=== PATIENT | male | born 1995 | race Caucasian/White ===

== ENCOUNTER 2021-12-29 10:45 | Inpatient (IN) ==
[2021-12-29] MEDS ORDERED: 0.9 % Sodium Chloride 1,000 ML IVC ONE (12:45)
[2021-12-29] MEDS ORDERED: Iopamidol - 370 500 ML MLS IVP ONE ×3 (12:46→16:36)
[2021-12-29] MEDS ORDERED: *HR* Heparin 5,000 UNIT/ML VIAL IVP ONE (12:53)
[2021-12-29] MEDS ORDERED: Aspirin 81 MG TAB.CHEW PO ONE (12:53)
[2021-12-29] MEDS ORDERED: *HR* Heparin 5,000 UNIT/ML VIAL IVP PRN ×2 (12:53)
[2021-12-29] MEDS ORDERED: *HR* Ticagrelor 90 MG TABLET PO ONE (12:53)
[2021-12-29] MEDS ORDERED: Heparin 25,000UNIT/250ML 1/2NS 25,000 UNIT/250 ML IV.SOLN IVC SCH (13:00)
[2021-12-29 13:06] LABS: Nucleated Red Blood Cells 0.1 /100 WBC (0); Red Cell Distribution Width 12.7 % (11.5-14.5)
[2021-12-29 13:07] LABS: Hematocrit 41.9 % (37.5-50.1); Hemoglobin 14.1 g/dL (12.9-16.9); Mean Corpuscular HGB Conc 33.7 g/dL (31.6-35.5); Mean Corpuscular Hemoglobin 28.9 pg (28.0-33.3); Mean Corpuscular Volume 85.9 fL (83.0-100.0); Mean Platelet Volume 10.8 fL (9.4-12.4); Platelet Count 397 K/mcL (140-400); Red Blood Count 4.88 M/mcL (4.19-5.50)
[2021-12-29] MEDS ORDERED: *HR* FentaNYL (PF) 100 MCG/2 ML VIAL ONE ×3 (13:09→15:16)
[2021-12-29] MEDS ORDERED: *HR* Midazolam HCl 2 MG/2 ML VIAL ONE ×2 (13:10→14:59)
[2021-12-29 13:13] LABS: White Blood Count 39.2 K/mcL (4.3-11.1)
[2021-12-29] MEDS ORDERED: Perflutren Lipid Microsphere 1.3 ML in 0.9 % Sodium Chloride 8.7 ML IVP PRN ×2 (13:15→15:08)
[2021-12-29 13:17] LABS: INR 1.9; Prothrombin Time 20.6 Seconds (9.4-12.1)
[2021-12-29] MEDS ORDERED: Piperacillin/Tazobactam 3.375 GM in 0.9 % Sodium Chloride Mini Bag 100 ML IVPB ONE (13:18)
[2021-12-29] MEDS ORDERED: Tdap (Boostrix) Vaccine 0.5 ML SYRINGE IM ONE (13:18)
[2021-12-29] MEDS ORDERED: Vancomycin 1,250 MG/262.5 ML IV.SOLN IVPB ONE (13:18)
[2021-12-29 13:19] LABS: Activated Partial Thrombo Time 26.7 Seconds (26.0-36.0)
[2021-12-29 13:52] LABS: Albumin 3.2 g/dL (3.5-5.7); Albumin/Globulin Ratio 0.9 (1.1-2.2); Alkaline Phosphatase 129 Units/L (34-104); Aspartate Amino Transferase 693 Units/L (13-39); BUN/Creatinine Ratio 35 (6-26); Bilirubin,Direct 1.6 mg/dL (0.0-0.2); Bilirubin,Indirect 1.5 mg/dL (0.0-1.0); Bilirubin,Total 3.1 mg/dL (0.3-1.0); Blood Urea Nitrogen 42 mg/dL (6-20); C-Reactive Protein 247 mg/L (Less than 10); Calcium 8.9 mg/dL (8.6-10.3); Carbon Dioxide 27 mEq/L (23-29); Chloride 78 mEq/L (98-107); Creatine Kinase 218 Units/L (30-223); Globulin 3.6 g/dL (2.4-3.5); Glucose 135 mg/dL (70-105); Magnesium 2.4 mg/dL (1.6-2.6); Osmolality,Calculated 261 (280-300); Potassium 4.9 mEq/L (3.5-5.1); Sodium 119 mEq/L (136-145); Total Protein 6.8 g/dL (6.4-8.9); Troponin I 0.17 ng/mL (< 0.04); eGFR For African Americans > 60 (> 60); eGFR For Non-African Americans > 60 (> 60)
[2021-12-29 13:56] LABS: Lymphocytes # 2.4 K/mcL (0.6-4.6); Neutrophils # 34.9 K/mcL (1.6-8.9)
[2021-12-29 13:58] LABS: Large Platelets Present (Not Present); Platelet Estimate Normal (Normal); Polychromasia 1+ (Not Present)
[2021-12-29 14:14] LABS: Alanine Aminotransferase 905 Units/L (7-52)
[2021-12-29] MEDS ORDERED: Ondansetron 4 MG/2 ML VIAL IVP ONE (14:30)
[2021-12-29] MEDS ORDERED: *HR* Heparin 10,000 UNIT/10 ML VIAL ONE (14:41)
[2021-12-29] MEDS ORDERED: *HR* Atropine Sulfate 1 MG/10 ML SYRINGE ONE (14:41)
[2021-12-29] MEDS ORDERED: Iopamidol - 370 200 ML INFUS..BTL ONE (14:42)
[2021-12-29] MEDS ORDERED: Heparin 1,000 UNITS/500 mL 500 ML ONE (14:42)
[2021-12-29] MEDS ORDERED: 0.9 % Sodium Chloride 2,000 ML ONE (14:42)
[2021-12-29] MEDS ORDERED: Nitroglycerin 1,000 MCG/5 ML VIAL IV ONE (14:42)
[2021-12-29] MEDS ORDERED: 0.9 % Sodium Chloride 1,000 ML ONE (14:42)
[2021-12-29 16:58] LABS: Appearance of Pericardial Fl Cloudy (Clear)
[2021-12-29] MEDS ORDERED: 0.9 % Sodium Chloride 1,000 ML IV ONE (17:02)
[2021-12-29] MEDS ORDERED: Naloxone 0.4 MG/ML INJ IVP PRN (17:29)
[2021-12-29] MEDS ORDERED: *HR* LORazepam 2 MG/ML VIAL IVP ONE (17:34)
[2021-12-29 17:49] LABS: Amylase,Pericardial Fluid < 10 Units/L (No Ref Range); Glucose,Pericardial Fluid < 10 mg/dL (No Ref Range)
[2021-12-29 18:09] LABS: Bacteria,Urine Few per hpf (None-Few); Bilirubin,Urine Negative (Negative); Blood,Urine Trace (Negative); Clarity,Urine Clear (Clear); Color,Urine Light-Yellow (Yellow); Glucose,Urine (UA) Normal (Normal); Ketones,Urine Negative (Negative); Leukocyte Esterase,Urine Negative (Negative); Mucus,Urine Few per lpf (None-Few); Nitrite,Urine Negative (Negative); PH,Urine 6.5 pH Units (5.0-8.0); Protein,Urine Negative (Neg-Trace); RBC,Urine 0-3 per hpf (0-3); Specific Gravity,Urine 1.021 (1.010-1.025); WBC,Urine 0-3 per hpf (0-3)
[2021-12-29 18:19] LABS: Creatinine,Urine 30 mg/dL; Sodium, Urine 12.4 mEq/L
[2021-12-29 18:27] LABS: Amphetamine Screen,Urine Positive ng/mL (Cutoff=1000); Barbiturate Screen,Urine Negative ng/mL (Cutoff=200); Benzodiazepines Screen,Urine Negative ng/mL (Cutoff=200); Cannabinoid Screen,Urine Negative ng/mL (Cutoff = 50); Cocaine Screen,Urine Negative ng/mL (Cutoff= 300); Opiate Screen,Urine Negative ng/mL (Cutoff=300); Phencyclidine Screen,Urine Negative ng/mL (Cutoff=25)
[2021-12-29 19:09] LABS: BUN/Creatinine Ratio 35 (6-26); Blood Urea Nitrogen 36 mg/dL (6-20); Calcium 7.9 mg/dL (8.6-10.3); Carbon Dioxide 30 mEq/L (23-29); Chloride 88 mEq/L (98-107); Glucose 88 mg/dL (70-105); Osmolality,Calculated 268 (280-300); Potassium 4.3 mEq/L (3.5-5.1); Sodium 125 mEq/L (136-145); eGFR For African Americans > 60 (> 60); eGFR For Non-African Americans > 60 (> 60)
[2021-12-29] MEDS: *HR* HYDROcodone/Acet 5/325 mg TABLET PO PRN (20:51)
[2021-12-29] MEDS: Piperacillin/Tazobactam 3.375 GM in 0.9 % Sodium Chloride Mini Bag 100 ML IVPB SCH (20:52)
[2021-12-29 21:22] LABS: BUN/Creatinine Ratio 38 (6-26); Blood Urea Nitrogen 33 mg/dL (6-20); Calcium 7.9 mg/dL (8.6-10.3); Carbon Dioxide 26 mEq/L (23-29); Chloride 92 mEq/L (98-107); Glucose 88 mg/dL (70-105); Osmolality,Calculated 271 (280-300); Potassium 4.2 mEq/L (3.5-5.1); Sodium 127 mEq/L (136-145); eGFR For African Americans > 60 (> 60); eGFR For Non-African Americans > 60 (> 60)
[2021-12-29 21:38] LABS: Troponin I 0.36 ng/mL (< 0.04)
[2021-12-30] MEDS: *HR* Heparin 5,000 UNIT/ML VIAL SQ SCH ×3 (00:07→18:37)
[2021-12-30] MEDS: Vancomycin 1,250 MG/262.5 ML IV.SOLN IVPB SCH ×3 (00:37→15:46)
[2021-12-30 02:00] LABS: Hematocrit 39.4 % (37.5-50.1); Hemoglobin 13.3 g/dL (12.9-16.9); Immature Granulocytes % 4.6 % (0-4); Lymphocytes % 4.8 %; Mean Corpuscular HGB Conc 33.8 g/dL (31.6-35.5); Mean Corpuscular Hemoglobin 29.3 pg (28.0-33.3); Mean Corpuscular Volume 86.8 fL (83.0-100.0); Monocytes # 1.9 K/mcL (0.0-1.3); Monocytes % 4.5 %; Nucleated Red Blood Cells 0.1 /100 WBC (0); Platelet Count 369 K/mcL (140-400); Red Blood Count 4.54 M/mcL (4.19-5.50); Segmented Neutrophils % 86.1 %
[2021-12-30 02:01] LABS: White Blood Count 41.8 K/mcL (4.3-11.1)
[2021-12-30 02:19] LABS: BUN/Creatinine Ratio 33 (6-26); Blood Urea Nitrogen 29 mg/dL (6-20); Calcium 7.8 mg/dL (8.6-10.3); Carbon Dioxide 28 mEq/L (23-29); Chloride 92 mEq/L (98-107); Glucose 89 mg/dL (70-105); Osmolality,Calculated 267 (280-300); Potassium 3.9 mEq/L (3.5-5.1); Sodium 126 mEq/L (136-145); eGFR For African Americans > 60 (> 60); eGFR For Non-African Americans > 60 (> 60)
[2021-12-30 02:51] LABS: Albumin 2.7 g/dL (3.5-5.7); Albumin/Globulin Ratio 0.9 (1.1-2.2); Alkaline Phosphatase 115 Units/L (34-104); Aspartate Amino Transferase 352 Units/L (13-39); BUN/Creatinine Ratio 34 (6-26); Bilirubin,Total 2.5 mg/dL (0.3-1.0); Blood Urea Nitrogen 28 mg/dL (6-20); Calcium 7.8 mg/dL (8.6-10.3); Carbon Dioxide 27 mEq/L (23-29); Chloride 92 mEq/L (98-107); Globulin 2.9 g/dL (2.4-3.5); Glucose 89 mg/dL (70-105); Osmolality,Calculated 267 (280-300); Phosphorous 2.3 mg/dL (2.7-4.5); Potassium 3.8 mEq/L (3.5-5.1); Sodium 126 mEq/L (136-145); Total Protein 5.6 g/dL (6.4-8.9); Troponin I 0.34 ng/mL (< 0.04); eGFR For African Americans > 60 (> 60); eGFR For Non-African Americans > 60 (> 60)
[2021-12-30 03:15] LABS: Alanine Aminotransferase 595 Units/L (7-52)
[2021-12-30] MEDS: *HR* HYDROcodone/Acet 5/325 mg TABLET PO PRN (04:07)
[2021-12-30] MEDS: Piperacillin/Tazobactam 3.375 GM in 0.9 % Sodium Chloride Mini Bag 100 ML IVPB SCH ×3 (04:09→20:05)
[2021-12-30 09:30] LABS: mecA/C & MREJ (MRSA) Gene DETECTED (Not Detect)
[2021-12-30 09:31] LABS: A.calcoaceticus-baumannii cplx Not Detected (Not Detect); Bacteroides fragilis by PCR Not Detected (Not Detect); Candida albicans by PCR Not Detected (Not Detect); Candida auris by PCR Not Detected (Not Detect); Candida glabrata by PCR Not Detected (Not Detect); Candida krusei by PCR Not Detected (Not Detect); Candida parapsilosis by PCR Not Detected (Not Detect); Candida tropicalis by PCR Not Detected (Not Detect); Crypto. neoformans/gattii PCR Not Detected (Not Detect); Enterobacter cloacae Cmplx PCR Not Detected (Not Detect); Enterobacterales by PCR Not Detected (Not Detect); Enterococcus faecalis by PCR Not Detected (Not Detect); Enterococcus faecium by PCR Not Detected (Not Detect); Escherichia coli by PCR Not Detected (Not Detect); Klebs. pneumoniae group by PCR Not Detected (Not Detect); Klebsiella aerogenes by PCR Not Detected (Not Detect); Klebsiella oxytoca by PCR Not Detected (Not Detect); Proteus by PCR Not Detected (Not Detect); Pseudomonas aeruginosa by PCR Not Detected (Not Detect); Salmonella species by PCR Not Detected (Not Detect); Serratia marcescens by PCR Not Detected (Not Detect); Staph epidermidis by PCR Not Detected (Not Detect); Staph lugdunensis by PCR Not Detected (Not Detect); Staphylococcus aureus by PCR DETECTED (Not Detect); Stenotrophomonas maltophilia Not Detected (Not Detect); Streptococcus agalactiae(B)PCR Not Detected (Not Detect); Streptococcus by PCR Not Detected (Not Detect); Streptococcus pneumoniae PCR Not Detected (Not Detect); Streptococcus pyogenes (A) PCR Not Detected (Not Detect)
[2021-12-30] MEDS: Ibuprofen 600 MG TABLET PO SCH ×3 (13:45→20:05)
[2021-12-30] MEDS: Colchicine 0.6 MG TABLET PO SCH ×2 (13:45→20:05)
[2021-12-30] MEDS: Ringers Solution, Lactated 1,000 ML IVC SCH (13:46)
[2021-12-31] MEDS: Vancomycin 1,250 MG/262.5 ML IV.SOLN IVPB SCH ×4 (01:15→23:13)
[2021-12-31] MEDS: Ringers Solution, Lactated 1,000 ML IVC SCH ×2 (01:15→19:35)
[2021-12-31] MEDS: *HR* Heparin 5,000 UNIT/ML VIAL SQ SCH ×2 (05:37→18:23)
[2021-12-31] MEDS: Piperacillin/Tazobactam 3.375 GM in 0.9 % Sodium Chloride Mini Bag 100 ML IVPB SCH ×2 (05:37→18:17)
[2021-12-31 07:13] LABS: Mean Corpuscular HGB Conc 32.9 g/dL (31.6-35.5); Red Cell Distribution Width 13.2 % (11.5-14.5)
[2021-12-31 07:14] LABS: Hematocrit 38.6 % (37.5-50.1); Hemoglobin 12.7 g/dL (12.9-16.9); Mean Corpuscular Hemoglobin 29.3 pg (28.0-33.3); Mean Corpuscular Volume 88.9 fL (83.0-100.0); Mean Platelet Volume 9.6 fL (9.4-12.4); Platelet Count 329 K/mcL (140-400); Red Blood Count 4.34 M/mcL (4.19-5.50); White Blood Count 27.3 K/mcL (4.3-11.1)
[2021-12-31 07:32] LABS: Alanine Aminotransferase 377 Units/L (7-52); Albumin 2.4 g/dL (3.5-5.7); Albumin/Globulin Ratio 0.9 (1.1-2.2); Alkaline Phosphatase 126 Units/L (34-104); Aspartate Amino Transferase 230 Units/L (13-39); BUN/Creatinine Ratio 25 (6-26); Bilirubin,Total 1.2 mg/dL (0.3-1.0); Blood Urea Nitrogen 19 mg/dL (6-20); Calcium 6.6 mg/dL (8.6-10.3); Carbon Dioxide 28 mEq/L (23-29); Chloride 99 mEq/L (98-107); Globulin 2.8 g/dL (2.4-3.5); Glucose 107 mg/dL (70-105); Osmolality,Calculated 279 (280-300); Potassium 3.7 mEq/L (3.5-5.1); Sodium 133 mEq/L (136-145); Total Protein 5.2 g/dL (6.4-8.9); eGFR For African Americans > 60 (> 60); eGFR For Non-African Americans > 60 (> 60)
[2021-12-31 07:55] LABS: Lymphocytes # 1.1 K/mcL (0.6-4.6); Monocytes # 1.1 K/mcL (0.0-1.3); Neutrophils # 24.6 K/mcL (1.6-8.9)
[2021-12-31 07:56] LABS: Platelet Estimate Normal (Normal); Toxic Granulation Present (Not Present)
[2021-12-31 08:03] LABS: Hepatitis B Surface Antibody 136.76 mIU/mL
[2021-12-31 08:15] LABS: Hepatitis B Surface Antigen Nonreactive (Nonreactive)
[2021-12-31] MEDS: *HR* HYDROcodone/Acet 5/325 mg TABLET PO PRN (08:22)
[2021-12-31] MEDS: Colchicine 0.6 MG TABLET PO SCH ×2 (08:23→21:17)
[2021-12-31] MEDS: Ibuprofen 600 MG TABLET PO SCH ×3 (08:23→21:16)
[2021-12-31 08:43] LABS: HIV-1&2 Antibody & p24 Ag Nonreactive (Nonreactive)
[2021-12-31] MEDS ORDERED: Lidocaine Viscous Oral Soln 15 ML SOLUTION MM PRN (13:25)
[2021-12-31] MEDS ORDERED: 0.9 % Sodium Chloride 500 ML IVC ONE (13:26)
[2021-12-31] MEDS: *HR* Midazolam HCl 5 MG/5 ML VIAL IVP PRN ×2 (13:55→14:00)
[2021-12-31] MEDS: *HR* FentaNYL (PF) 100 MCG/2 ML VIAL IVP PRN ×2 (13:55→14:00)
[2022-01-01] MEDS: *HR* HYDROcodone/Acet 5/325 mg TABLET PO PRN ×2 (03:38→10:59)
[2022-01-01] MEDS: Ondansetron 4 MG/2 ML VIAL IVP PRN (03:38)
[2022-01-01] MEDS: *HR* Heparin 5,000 UNIT/ML VIAL SQ SCH ×2 (06:14→17:03)
[2022-01-01] MEDS: Ringers Solution, Lactated 1,000 ML IVC SCH ×4 (06:14→17:58)
[2022-01-01 06:44] LABS: Hematocrit 41.3 % (37.5-50.1); Hemoglobin 13.1 g/dL (12.9-16.9); Mean Corpuscular HGB Conc 31.7 g/dL (31.6-35.5); Mean Corpuscular Hemoglobin 28.9 pg (28.0-33.3); Mean Platelet Volume 9.7 fL (9.4-12.4); Platelet Count 328 K/mcL (140-400); Red Blood Count 4.54 M/mcL (4.19-5.50); Red Cell Distribution Width 14.2 % (11.5-14.5)
[2022-01-01] MEDS ORDERED: Iopamidol - 370 500 ML MLS IVP ONE ×3 (06:47→09:06)
[2022-01-01 07:05] LABS: Alanine Aminotransferase 312 Units/L (7-52); Albumin 2.3 g/dL (3.5-5.7); Albumin/Globulin Ratio 0.7 (1.1-2.2); Alkaline Phosphatase 137 Units/L (34-104); Aspartate Amino Transferase 176 Units/L (13-39); BUN/Creatinine Ratio 22 (6-26); Bilirubin,Total 0.9 mg/dL (0.3-1.0); Blood Urea Nitrogen 15 mg/dL (6-20); Calcium 7.4 mg/dL (8.6-10.3); Carbon Dioxide 28 mEq/L (23-29); Chloride 99 mEq/L (98-107); Globulin 3.1 g/dL (2.4-3.5); Glucose 120 mg/dL (70-105); Osmolality,Calculated 274 (280-300); Potassium 3.5 mEq/L (3.5-5.1); Sodium 131 mEq/L (136-145); Total Protein 5.4 g/dL (6.4-8.9); eGFR For African Americans > 60 (> 60); eGFR For Non-African Americans > 60 (> 60)
[2022-01-01 07:06] LABS: Magnesium 1.9 mg/dL (1.6-2.6); Phosphorous 2.5 mg/dL (2.7-4.5)
[2022-01-01 07:29] LABS: Lymphocytes # 1.5 K/mcL (0.6-4.6); Neutrophils # 22.5 K/mcL (1.6-8.9); Platelet Estimate Normal (Normal); Toxic Granulation Present (Not Present)
[2022-01-01] MEDS: Colchicine 0.6 MG TABLET PO SCH ×2 (08:05→20:23)
[2022-01-01] MEDS: Ibuprofen 600 MG TABLET PO SCH ×3 (08:06→20:23)
[2022-01-01] MEDS: Vancomycin 1,250 MG/262.5 ML IV.SOLN IVPB SCH ×3 (08:10→23:16)
[2022-01-01] MEDS ORDERED: Morphine Sulfate 2 MG/ML SYRINGE IVP ONE (09:07)
[2022-01-01 09:21] LABS: Troponin I 0.07 ng/mL (< 0.04)
[2022-01-01] MEDS ORDERED: Ringers Solution, Lactated 1,000 ML IVC ONE (11:17)
[2022-01-01] MEDS ORDERED: Perflutren Lipid Microsphere 1.3 ML in 0.9 % Sodium Chloride 8.7 ML IVP PRN (11:18)
[2022-01-01] MEDS ORDERED: Ringers Solution, Lactated 1,000 ML IV SCH (11:30)
[2022-01-01] MEDS ORDERED: 0.9 % Sodium Chloride 1,000 ML ONE (12:10)
[2022-01-01] MEDS ORDERED: *HR* Midazolam HCl 2 MG/2 ML VIAL ONE (12:15)
[2022-01-01] MEDS ORDERED: *HR* FentaNYL (PF) 100 MCG/2 ML VIAL ONE (12:15)
[2022-01-02] MEDS: Acetaminophen 325 MG TABLET PO PRN ×2 (00:03→18:06)
[2022-01-02 01:28] LABS: Hematocrit 35.6 % (37.5-50.1); Mean Corpuscular HGB Conc 32.3 g/dL (31.6-35.5); Mean Corpuscular Hemoglobin 28.9 pg (28.0-33.3); Mean Corpuscular Volume 89.4 fL (83.0-100.0); Mean Platelet Volume 9.7 fL (9.4-12.4); Platelet Count 326 K/mcL (140-400); Red Blood Count 3.98 M/mcL (4.19-5.50); Red Cell Distribution Width 14.2 % (11.5-14.5); White Blood Count 20.8 K/mcL (4.3-11.1)
[2022-01-02 01:37] LABS: Hemoglobin 11.5 g/dL (12.9-16.9)
[2022-01-02 01:47] LABS: Alanine Aminotransferase 218 Units/L (7-52); Albumin 2.1 g/dL (3.5-5.7); Albumin/Globulin Ratio 0.7 (1.1-2.2); Alkaline Phosphatase 109 Units/L (34-104); Aspartate Amino Transferase 104 Units/L (13-39); BUN/Creatinine Ratio 20 (6-26); Bilirubin,Total 0.8 mg/dL (0.3-1.0); Blood Urea Nitrogen 12 mg/dL (6-20); Calcium 7.4 mg/dL (8.6-10.3); Carbon Dioxide 26 mEq/L (23-29); Chloride 104 mEq/L (98-107); Globulin 3.1 g/dL (2.4-3.5); Glucose 106 mg/dL (70-105); Osmolality,Calculated 278 (280-300); Sodium 134 mEq/L (136-145); Total Protein 5.2 g/dL (6.4-8.9); eGFR For African Americans > 60 (> 60); eGFR For Non-African Americans > 60 (> 60)
[2022-01-02 02:06] LABS: Lymphocytes # 1.7 K/mcL (0.6-4.6); Monocytes # 0.8 K/mcL (0.0-1.3); Neutrophils # 18.3 K/mcL (1.6-8.9)
[2022-01-02 02:07] LABS: Platelet Estimate Normal (Normal)
[2022-01-02] MEDS: Ringers Solution, Lactated 1,000 ML IVC SCH ×3 (05:36→19:59)
[2022-01-02] MEDS: *HR* Heparin 5,000 UNIT/ML VIAL SQ SCH ×2 (05:37→16:58)
[2022-01-02] MEDS: *HR* HYDROcodone/Acet 5/325 mg TABLET PO PRN (07:38)
[2022-01-02] MEDS ORDERED: Perflutren Lipid Microsphere 1.3 ML in 0.9 % Sodium Chloride 8.7 ML IVP PRN (09:16)
[2022-01-02] MEDS: Ibuprofen 600 MG TABLET PO SCH ×3 (11:05→19:59)
[2022-01-02] MEDS: Colchicine 0.6 MG TABLET PO SCH ×2 (11:05→19:59)
[2022-01-02] MEDS: Vancomycin 1,500 MG/265 ML IV.SOLN IVPB SCH ×2 (11:06→16:58)
[2022-01-03] MEDS: Vancomycin 1,500 MG/265 ML IV.SOLN IVPB SCH ×2 (01:12→20:12)
[2022-01-03] MEDS: Ondansetron 4 MG/2 ML VIAL IVP PRN ×2 (02:43→22:24)
[2022-01-03] MEDS: Ringers Solution, Lactated 1,000 ML IVC SCH ×2 (04:12→19:47)
[2022-01-03] MEDS: *HR* Heparin 5,000 UNIT/ML VIAL SQ SCH ×2 (06:48→17:37)
[2022-01-03] MEDS: *HR* HYDROcodone/Acet 5/325 mg TABLET PO PRN ×2 (06:53→17:37)
[2022-01-03] MEDS: Ibuprofen 600 MG TABLET PO SCH ×3 (09:22→20:11)
[2022-01-03] MEDS: Colchicine 0.6 MG TABLET PO SCH ×2 (09:22→20:12)
[2022-01-03 09:53] LABS: Basophils # 0.1 K/mcL (0.0-0.2); Basophils % 0.6 %; Eosinophils % 0.2 %; Hematocrit 38.2 % (37.5-50.1); Hemoglobin 12.3 g/dL (12.9-16.9); Immature Granulocytes % 2.7 % (0-4); Lymphocytes # 1.7 K/mcL (0.6-4.6); Lymphocytes % 8.7 %; Mean Corpuscular HGB Conc 32.2 g/dL (31.6-35.5); Mean Corpuscular Hemoglobin 29.1 pg (28.0-33.3); Mean Corpuscular Volume 90.3 fL (83.0-100.0); Mean Platelet Volume 9.3 fL (9.4-12.4); Monocytes # 0.9 K/mcL (0.0-1.3); Monocytes % 4.6 %; Platelet Count 308 K/mcL (140-400); Red Blood Count 4.23 M/mcL (4.19-5.50); Red Cell Distribution Width 13.8 % (11.5-14.5); Segmented Neutrophils % 83.2 %; White Blood Count 19.2 K/mcL (4.3-11.1)
[2022-01-03] MEDS: Acetaminophen 325 MG TABLET PO PRN (10:09)
[2022-01-03 10:13] LABS: Alanine Aminotransferase 165 Units/L (7-52); Albumin 2.3 g/dL (3.5-5.7); Albumin/Globulin Ratio 0.7 (1.1-2.2); Alkaline Phosphatase 105 Units/L (34-104); Aspartate Amino Transferase 64 Units/L (13-39); BUN/Creatinine Ratio 15 (6-26); Bilirubin,Total 0.9 mg/dL (0.3-1.0); Blood Urea Nitrogen 9 mg/dL (6-20); Calcium 7.6 mg/dL (8.6-10.3); Carbon Dioxide 27 mEq/L (23-29); Chloride 100 mEq/L (98-107); Globulin 3.3 g/dL (2.4-3.5); Glucose 100 mg/dL (70-105); Osmolality,Calculated 271 (280-300); Potassium 4.4 mEq/L (3.5-5.1); Sodium 131 mEq/L (136-145); Total Protein 5.6 g/dL (6.4-8.9); eGFR For African Americans > 60 (> 60); eGFR For Non-African Americans > 60 (> 60)
[2022-01-03 16:11] LABS: Estimated Average Glucose 100 mg/dl; Hemoglobin A1C 5.1 %
[2022-01-03 16:13] LABS: Basophils # 0.1 K/mcL (0.0-0.2); Basophils % 0.4 %; Eosinophils # 0.1 K/mcL (0.0-0.6); Eosinophils % 0.7 %; Hematocrit 36.3 % (37.5-50.1); Hemoglobin 11.7 g/dL (12.9-16.9); Immature Granulocytes % 3.1 % (0-4); Lymphocytes # 1.8 K/mcL (0.6-4.6); Lymphocytes % 9.8 %; Mean Corpuscular HGB Conc 32.2 g/dL (31.6-35.5); Mean Corpuscular Hemoglobin 29.3 pg (28.0-33.3); Mean Corpuscular Volume 90.8 fL (83.0-100.0); Mean Platelet Volume 9.5 fL (9.4-12.4); Monocytes % 5.5 %; Neutrophils # 14.8 K/mcL (1.6-8.9); Platelet Count 299 K/mcL (140-400); Red Cell Distribution Width 13.8 % (11.5-14.5); Segmented Neutrophils % 80.5 %; White Blood Count 18.4 K/mcL (4.3-11.1)
[2022-01-03 16:21] LABS: INR 1.2; Prothrombin Time 12.9 Seconds (9.4-12.1)
[2022-01-03 16:23] LABS: Activated Partial Thrombo Time 23.5 Seconds (26.0-36.0)
[2022-01-03 16:48] LABS: BUN/Creatinine Ratio 16 (6-26); Blood Urea Nitrogen 10 mg/dL (6-20); Calcium 7.8 mg/dL (8.6-10.3); Carbon Dioxide 25 mEq/L (23-29); Chloride 102 mEq/L (98-107); Chol/HDL Ratio 6.3 (0-4.9); Cholesterol 75 mg/dL (< 200); Glucose 94 mg/dL (70-105); HDL Cholesterol 12 mg/dL (40-59); LDL Cholesterol,Calculated 41 mg/dL (< 100); Osmolality,Calculated 277 (280-300); Sodium 134 mEq/L (136-145); Triglycerides 111 mg/dL (< 150); eGFR For African Americans > 60 (> 60); eGFR For Non-African Americans > 60 (> 60)
[2022-01-03] MEDS: Nystatin SUSP 5 ML UD.LIQ BC SCH ×2 (20:10→22:28)
[2022-01-03] MEDS: Chlorhexidine Rinse 15 ML MOUTHWASH MM SCH (20:11)
[2022-01-04] MEDS: *HR* HYDROcodone/Acet 5/325 mg TABLET PO PRN ×2 (02:20→08:35)
[2022-01-04] MEDS: Ringers Solution, Lactated 1,000 ML IVC SCH ×3 (02:22→21:01)
[2022-01-04] MEDS: Vancomycin 1,500 MG/265 ML IV.SOLN IVPB SCH ×3 (02:24→17:38)
[2022-01-04 04:03] LABS: Basophils # 0.1 K/mcL (0.0-0.2); Basophils % 0.7 %; Eosinophils # 0.1 K/mcL (0.0-0.6); Eosinophils % 0.4 %; Hematocrit 37.3 % (37.5-50.1); Immature Granulocytes % 2.9 % (0-4); Lymphocytes % 12.2 %; Mean Corpuscular HGB Conc 32.2 g/dL (31.6-35.5); Mean Corpuscular Hemoglobin 29.1 pg (28.0-33.3); Mean Corpuscular Volume 90.5 fL (83.0-100.0); Mean Platelet Volume 9.5 fL (9.4-12.4); Monocytes # 1.1 K/mcL (0.0-1.3); Monocytes % 6.7 %; Neutrophils # 12.7 K/mcL (1.6-8.9); Platelet Count 313 K/mcL (140-400); Red Blood Count 4.12 M/mcL (4.19-5.50); Red Cell Distribution Width 13.9 % (11.5-14.5); Segmented Neutrophils % 77.1 %; White Blood Count 16.5 K/mcL (4.3-11.1)
[2022-01-04 04:15] LABS: Magnesium 1.6 mg/dL (1.6-2.6); Phosphorous 4.8 mg/dL (2.7-4.5)
[2022-01-04 04:17] LABS: Alanine Aminotransferase 124 Units/L (7-52); Albumin 2.2 g/dL (3.5-5.7); Albumin/Globulin Ratio 0.6 (1.1-2.2); Alkaline Phosphatase 105 Units/L (34-104); Aspartate Amino Transferase 47 Units/L (13-39); BUN/Creatinine Ratio 18 (6-26); Bilirubin,Total 0.6 mg/dL (0.3-1.0); Blood Urea Nitrogen 10 mg/dL (6-20); Calcium 8.1 mg/dL (8.6-10.3); Carbon Dioxide 27 mEq/L (23-29); Chloride 101 mEq/L (98-107); Globulin 3.6 g/dL (2.4-3.5); Glucose 78 mg/dL (70-105); Osmolality,Calculated 274 (280-300); Potassium 4.3 mEq/L (3.5-5.1); Sodium 133 mEq/L (136-145); Total Protein 5.8 g/dL (6.4-8.9); eGFR For African Americans > 60 (> 60); eGFR For Non-African Americans > 60 (> 60)
[2022-01-04] MEDS: *HR* Heparin 5,000 UNIT/ML VIAL SQ SCH ×2 (05:04→19:51)
[2022-01-04] MEDS ORDERED: Aspirin 81 MG TAB.CHEW PO ONE (06:00)
[2022-01-04] MEDS: Nystatin SUSP 5 ML UD.LIQ BC SCH ×4 (07:12→21:01)
[2022-01-04] MEDS: Colchicine 0.6 MG TABLET PO SCH ×2 (07:12→21:01)
[2022-01-04] MEDS: Chlorhexidine Rinse 15 ML MOUTHWASH MM SCH (07:12)
[2022-01-04] MEDS: Ibuprofen 600 MG TABLET PO SCH ×3 (07:12→21:01)
[2022-01-04 09:17] LABS: HCV Quant Interpretation DETECTED (Not Detected); HCV Quant Log 4.71 log IU/mL
[2022-01-04] MEDS ORDERED: CeFAZolin Syr 2,000MG/20 ML 2,000 MG/20 ML SYRINGE IVPB ONE (10:50)
[2022-01-04] MEDS ORDERED: *HR* Rocuronium Bromide 50 MG/5 ML VIAL ONE (16:20)
[2022-01-04] MEDS ORDERED: Lidocaine 2% Syringe 100 MG/5 ML ONE (16:21)
[2022-01-04] MEDS ORDERED: *HR* FentaNYL (PF) 250 MCG/5 ML VIAL ONE (16:21)
[2022-01-04] MEDS ORDERED: *HR* Etomidate 20 MG/10 ML AMPUL IVP ONE (16:21)
[2022-01-04] MEDS ORDERED: Bupivacaine/EPI 1:200k 0.25% 50 ML VIAL ONE (17:09)
[2022-01-04] MEDS ORDERED: Albuterol 2.5 MG/3 ML NEBULIZER IH PRN (17:23)
[2022-01-04] MEDS ORDERED: *HR* OxyCODONE Immed Rel 5 MG TABLET PO PRN (17:23)
[2022-01-04] MEDS ORDERED: Ondansetron 4 MG/2 ML VIAL IVP PRN (17:23)
[2022-01-04] MEDS ORDERED: Ondansetron 4 MG/2 ML VIAL ONE (18:13)
[2022-01-04] MEDS ORDERED: Ketorolac 30 MG/ML VIAL ONE (18:26)
[2022-01-04] MEDS ORDERED: Sugammadex Sodium 200 MG/2 ML VIAL IV ONE (18:43)
[2022-01-04] MEDS ORDERED: Ketamine HCL *QUVA* 50mg (1mL) SYRINGE ONE (18:50)
[2022-01-04] MEDS: Ondansetron 4 MG/2 ML VIAL IVP PRN (19:01)
[2022-01-04] MEDS: *HR* HYDROmorphone PF 0.5 MG/0.5 ML SYRINGE IVP PRN ×2 (19:09→19:20)
[2022-01-05] MEDS: Vancomycin 1,500 MG/265 ML IV.SOLN IVPB SCH ×3 (01:59→19:52)
[2022-01-05] MEDS: *HR* Heparin 5,000 UNIT/ML VIAL SQ SCH ×2 (05:31→18:43)
[2022-01-05] MEDS: *HR* HYDROcodone/Acet 5/325 mg TABLET PO PRN ×2 (05:34→19:53)
[2022-01-05 06:02] LABS: Basophils % 0.2 %; Hematocrit 38.4 % (37.5-50.1); Hemoglobin 12.2 g/dL (12.9-16.9); Immature Granulocytes % 1.5 % (0-4); Lymphocytes # 0.8 K/mcL (0.6-4.6); Mean Corpuscular HGB Conc 31.8 g/dL (31.6-35.5); Mean Corpuscular Hemoglobin 28.6 pg (28.0-33.3); Mean Corpuscular Volume 90.1 fL (83.0-100.0); Mean Platelet Volume 9.4 fL (9.4-12.4); Monocytes # 0.3 K/mcL (0.0-1.3); Monocytes % 2.3 %; Neutrophils # 11.6 K/mcL (1.6-8.9); Platelet Count 359 K/mcL (140-400); Red Blood Count 4.26 M/mcL (4.19-5.50); Red Cell Distribution Width 13.6 % (11.5-14.5); White Blood Count 12.9 K/mcL (4.3-11.1)
[2022-01-05 06:19] LABS: Magnesium 1.8 mg/dL (1.6-2.6); Phosphorous 4.5 mg/dL (2.7-4.5)
[2022-01-05 06:21] LABS: Alanine Aminotransferase 97 Units/L (7-52); Albumin 2.4 g/dL (3.5-5.7); Albumin/Globulin Ratio 0.6 (1.1-2.2); Alkaline Phosphatase 109 Units/L (34-104); Aspartate Amino Transferase 35 Units/L (13-39); BUN/Creatinine Ratio 24 (6-26); Bilirubin,Total 0.5 mg/dL (0.3-1.0); Blood Urea Nitrogen 14 mg/dL (6-20); Calcium 8.1 mg/dL (8.6-10.3); Carbon Dioxide 28 mEq/L (23-29); Chloride 100 mEq/L (98-107); Globulin 3.8 g/dL (2.4-3.5); Glucose 149 mg/dL (70-105); Osmolality,Calculated 277 (280-300); Potassium 4.7 mEq/L (3.5-5.1); Sodium 132 mEq/L (136-145); Total Protein 6.2 g/dL (6.4-8.9); eGFR For African Americans > 60 (> 60); eGFR For Non-African Americans > 60 (> 60)
[2022-01-05] MEDS: Ringers Solution, Lactated 1,000 ML IVC SCH ×2 (07:30→14:35)
[2022-01-05] MEDS: Ibuprofen 600 MG TABLET PO SCH ×3 (09:31→19:53)
[2022-01-05] MEDS: Nystatin SUSP 5 ML UD.LIQ BC SCH ×4 (09:31→19:53)
[2022-01-05] MEDS: Colchicine 0.6 MG TABLET PO SCH ×2 (09:32→19:53)
[2022-01-05] MEDS: Ondansetron 4 MG/2 ML VIAL IVP PRN (13:11)
[2022-01-05] MEDS ORDERED: Promethazine 6.25 MG in Water for inj. (sterile) 20 ML IVPB PRN (15:19)
[2022-01-05] MEDS ORDERED: *HR* Midazolam HCl 2 MG/2 ML VIAL ONE (15:37)
[2022-01-05] MEDS ORDERED: Lidocaine -MPF 2% 5 ML VIAL ONE (15:37)
[2022-01-05] MEDS ORDERED: Ondansetron 4 MG/2 ML VIAL ONE (15:37)
[2022-01-05] MEDS ORDERED: *HR* FentaNYL (PF) 100 MCG/2 ML VIAL ONE (15:37)
[2022-01-05] MEDS ORDERED: *HR* Propofol 200 MG/20 ML VIAL IVP ONE (15:38)
[2022-01-05] MEDS ORDERED: Lidocaine/EPI 1:200k 1% PF 10 ML VIAL ONE (15:38)
[2022-01-05] MEDS ORDERED: Lidocaine/EPI 1:100k 1% 50 ML VIAL ONE (15:38)
[2022-01-05] MEDS ORDERED: *HR* HYDROMORPHONE 2 MG/ML VIAL ONE (16:06)
[2022-01-06 02:08] LABS: Basophils % 0.2 %; Hematocrit 37.5 % (37.5-50.1); Hemoglobin 12.1 g/dL (12.9-16.9); Immature Granulocytes % 1.3 % (0-4); Lymphocytes # 0.9 K/mcL (0.6-4.6); Mean Corpuscular HGB Conc 32.3 g/dL (31.6-35.5); Mean Corpuscular Hemoglobin 29.3 pg (28.0-33.3); Mean Corpuscular Volume 90.8 fL (83.0-100.0); Mean Platelet Volume 9.6 fL (9.4-12.4); Monocytes # 0.8 K/mcL (0.0-1.3); Monocytes % 4.2 %; Neutrophils # 16.2 K/mcL (1.6-8.9); Platelet Count 410 K/mcL (140-400); Red Blood Count 4.13 M/mcL (4.19-5.50); Red Cell Distribution Width 13.4 % (11.5-14.5); Segmented Neutrophils % 89.3 %; White Blood Count 18.1 K/mcL (4.3-11.1)
[2022-01-06 02:18] LABS: Alanine Aminotransferase 92 Units/L (7-52); Albumin 2.3 g/dL (3.5-5.7); Albumin/Globulin Ratio 0.6 (1.1-2.2); Alkaline Phosphatase 104 Units/L (34-104); Aspartate Amino Transferase 61 Units/L (13-39); BUN/Creatinine Ratio 34 (6-26); Bilirubin,Total 0.4 mg/dL (0.3-1.0); Blood Urea Nitrogen 21 mg/dL (6-20); Calcium 8.1 mg/dL (8.6-10.3); Carbon Dioxide 26 mEq/L (23-29); Chloride 102 mEq/L (98-107); Globulin 3.7 g/dL (2.4-3.5); Glucose 160 mg/dL (70-105); Osmolality,Calculated 282 (280-300); Potassium 4.5 mEq/L (3.5-5.1); Sodium 133 mEq/L (136-145); eGFR For African Americans > 60 (> 60); eGFR For Non-African Americans > 60 (> 60)
[2022-01-06] MEDS: Vancomycin 1,500 MG/265 ML IV.SOLN IVPB SCH (03:28)
[2022-01-06] MEDS: *HR* HYDROcodone/Acet 5/325 mg TABLET PO PRN ×3 (03:34→23:51)
[2022-01-06] MEDS: *HR* Heparin 5,000 UNIT/ML VIAL SQ SCH ×2 (05:47→16:45)
[2022-01-06] MEDS ORDERED: 0.9 % Sodium Chloride 1,000 ML IVC SCH (07:30)
[2022-01-06] MEDS: Ringers Solution, Lactated 1,000 ML IVC SCH ×2 (08:38→12:56)
[2022-01-06] MEDS: Nystatin SUSP 5 ML UD.LIQ BC SCH ×4 (08:39→19:48)
[2022-01-06] MEDS: Colchicine 0.6 MG TABLET PO SCH ×2 (08:39→19:46)
[2022-01-06] MEDS: Ibuprofen 600 MG TABLET PO SCH ×3 (08:40→19:46)
[2022-01-06] MEDS: Vancomycin 1,750 MG/517.5 ML IV.SOLN IVPB SCH ×2 (11:41→23:47)
[2022-01-06] MEDS ORDERED: Lidocaine -MPF 1% 5 ML AMPUL INFILT ONE (13:58)
[2022-01-07] MEDS: *HR* Heparin 5,000 UNIT/ML VIAL SQ SCH ×2 (06:23→16:59)
[2022-01-07] MEDS: *HR* HYDROcodone/Acet 5/325 mg TABLET PO PRN (06:24)
[2022-01-07 07:15] LABS: Hematocrit 40.3 % (37.5-50.1); Hemoglobin 12.6 g/dL (12.9-16.9); Mean Corpuscular HGB Conc 31.3 g/dL (31.6-35.5); Mean Corpuscular Hemoglobin 29.2 pg (28.0-33.3); Mean Corpuscular Volume 93.3 fL (83.0-100.0); Platelet Count 458 K/mcL (140-400); Red Blood Count 4.32 M/mcL (4.19-5.50); Red Cell Distribution Width 13.4 % (11.5-14.5); White Blood Count 15.8 K/mcL (4.3-11.1)
[2022-01-07 07:45] LABS: BUN/Creatinine Ratio 30 (6-26); Blood Urea Nitrogen 17 mg/dL (6-20); Calcium 7.9 mg/dL (8.6-10.3); Carbon Dioxide 25 mEq/L (23-29); Chloride 106 mEq/L (98-107); Glucose 82 mg/dL (70-105); Osmolality,Calculated 283 (280-300); Potassium 4.1 mEq/L (3.5-5.1); Sodium 136 mEq/L (136-145); eGFR For African Americans > 60 (> 60); eGFR For Non-African Americans > 60 (> 60)
[2022-01-07] MEDS: Nystatin SUSP 5 ML UD.LIQ BC SCH ×4 (10:00→20:56)
[2022-01-07] MEDS: Ibuprofen 600 MG TABLET PO SCH ×3 (10:01→20:55)
[2022-01-07] MEDS: Colchicine 0.6 MG TABLET PO SCH ×2 (10:01→20:56)
[2022-01-07] MEDS: Ondansetron 4 MG/2 ML VIAL IVP PRN (10:34)
[2022-01-07] MEDS: Vancomycin 1,750 MG/517.5 ML IV.SOLN IVPB SCH ×2 (10:59→18:28)
[2022-01-07 13:07] LABS: HCV Genotype by Sequencing 1A OR 1B
[2022-01-08] MEDS: Vancomycin 1,750 MG/517.5 ML IV.SOLN IVPB SCH ×3 (02:57→20:09)
[2022-01-08] MEDS: Acetaminophen 325 MG TABLET PO PRN (03:03)
[2022-01-08 05:44] LABS: BUN/Creatinine Ratio 28 (6-26); Blood Urea Nitrogen 14 mg/dL (6-20); Calcium 8.2 mg/dL (8.6-10.3); Carbon Dioxide 27 mEq/L (23-29); Chloride 101 mEq/L (98-107); Glucose 88 mg/dL (70-105); Osmolality,Calculated 278 (280-300); Sodium 134 mEq/L (136-145); eGFR For African Americans > 60 (> 60); eGFR For Non-African Americans > 60 (> 60)
[2022-01-08 05:45] LABS: Hematocrit 35.2 % (37.5-50.1); Mean Corpuscular HGB Conc 30.7 g/dL (31.6-35.5); Mean Corpuscular Hemoglobin 28.6 pg (28.0-33.3); Mean Corpuscular Volume 93.4 fL (83.0-100.0); Mean Platelet Volume 9.2 fL (9.4-12.4); Platelet Count 353 K/mcL (140-400); Red Blood Count 3.77 M/mcL (4.19-5.50); Red Cell Distribution Width 13.3 % (11.5-14.5); White Blood Count 13.6 K/mcL (4.3-11.1)
[2022-01-08] MEDS: *HR* Heparin 5,000 UNIT/ML VIAL SQ SCH ×2 (06:08→17:08)
[2022-01-08 06:14] LABS: Hemoglobin 10.8 g/dL (12.9-16.9)
[2022-01-08] MEDS: Nystatin SUSP 5 ML UD.LIQ BC SCH ×4 (08:10→20:09)
[2022-01-08] MEDS: Colchicine 0.6 MG TABLET PO SCH ×2 (08:11→20:09)
[2022-01-08] MEDS: Ibuprofen 600 MG TABLET PO SCH ×3 (08:11→20:09)
[2022-01-08] MEDS: *HR* HYDROcodone/Acet 5/325 mg TABLET PO PRN (17:07)
[2022-01-08] MEDS: Ringers Solution, Lactated 1,000 ML IVC SCH (19:34)
[2022-01-09] MEDS: Vancomycin 1,750 MG/517.5 ML IV.SOLN IVPB SCH ×3 (02:21→19:43)
[2022-01-09] MEDS: *HR* HYDROcodone/Acet 5/325 mg TABLET PO PRN ×3 (02:25→20:17)
[2022-01-09 03:10] LABS: BUN/Creatinine Ratio 27 (6-26); Blood Urea Nitrogen 16 mg/dL (6-20); eGFR For African Americans > 60 (> 60); eGFR For Non-African Americans > 60 (> 60)
[2022-01-09] MEDS: *HR* Heparin 5,000 UNIT/ML VIAL SQ SCH ×2 (04:45→17:38)
[2022-01-09] MEDS: Nystatin SUSP 5 ML UD.LIQ BC SCH ×4 (08:49→20:11)
[2022-01-09] MEDS: Colchicine 0.6 MG TABLET PO SCH ×2 (08:49→19:45)
[2022-01-09] MEDS: Ibuprofen 600 MG TABLET PO SCH ×3 (08:49→20:18)
[2022-01-09] MEDS: Acetaminophen 325 MG TABLET PO PRN (15:26)
[2022-01-10 03:08] LABS: Basophils # 0.1 K/mcL (0.0-0.2); Basophils % 0.6 %; Eosinophils # 0.1 K/mcL (0.0-0.6); Eosinophils % 0.8 %; Hematocrit 32.2 % (37.5-50.1); Hemoglobin 10.3 g/dL (12.9-16.9); Immature Granulocytes % 0.7 % (0-4); Lymphocytes # 1.7 K/mcL (0.6-4.6); Lymphocytes % 14.7 %; Mean Corpuscular Hemoglobin 29.7 pg (28.0-33.3); Mean Corpuscular Volume 92.8 fL (83.0-100.0); Mean Platelet Volume 9.2 fL (9.4-12.4); Monocytes # 0.8 K/mcL (0.0-1.3); Monocytes % 6.4 %; Platelet Count 352 K/mcL (140-400); Red Blood Count 3.47 M/mcL (4.19-5.50); Red Cell Distribution Width 13.2 % (11.5-14.5); Segmented Neutrophils % 76.8 %; White Blood Count 11.7 K/mcL (4.3-11.1)
[2022-01-10 03:30] LABS: BUN/Creatinine Ratio 37 (6-26); Blood Urea Nitrogen 22 mg/dL (6-20); Calcium 8.2 mg/dL (8.6-10.3); Carbon Dioxide 27 mEq/L (23-29); Chloride 103 mEq/L (98-107); Glucose 100 mg/dL (70-105); Osmolality,Calculated 285 (280-300); Potassium 4.3 mEq/L (3.5-5.1); Sodium 136 mEq/L (136-145); eGFR For African Americans > 60 (> 60); eGFR For Non-African Americans > 60 (> 60)
[2022-01-10] MEDS: *HR* Heparin 5,000 UNIT/ML VIAL SQ SCH ×2 (05:26→17:52)
[2022-01-10] MEDS: Vancomycin 1,750 MG/517.5 ML IV.SOLN IVPB SCH ×3 (05:26→21:33)
[2022-01-10] MEDS: Acetaminophen 325 MG TABLET PO PRN ×2 (05:40→14:58)
[2022-01-10] MEDS: Nystatin SUSP 5 ML UD.LIQ BC SCH ×4 (09:25→20:01)
[2022-01-10] MEDS: Ibuprofen 600 MG TABLET PO SCH ×3 (09:25→20:01)
[2022-01-10] MEDS: Colchicine 0.6 MG TABLET PO SCH ×2 (09:25→20:02)
[2022-01-11 01:53] LABS: Hematocrit 32.6 % (37.5-50.1); Hemoglobin 10.3 g/dL (12.9-16.9); Mean Corpuscular HGB Conc 31.6 g/dL (31.6-35.5); Mean Corpuscular Hemoglobin 28.8 pg (28.0-33.3); Mean Corpuscular Volume 91.1 fL (83.0-100.0); Platelet Count 387 K/mcL (140-400); Red Blood Count 3.58 M/mcL (4.19-5.50); Red Cell Distribution Width 13.1 % (11.5-14.5); White Blood Count 11.5 K/mcL (4.3-11.1)
[2022-01-11 02:36] LABS: BUN/Creatinine Ratio 34 (6-26); Blood Urea Nitrogen 21 mg/dL (6-20); Calcium 8.7 mg/dL (8.6-10.3); Carbon Dioxide 26 mEq/L (23-29); Chloride 104 mEq/L (98-107); Glucose 96 mg/dL (70-105); Magnesium 1.8 mg/dL (1.6-2.6); Osmolality,Calculated 287 (280-300); Potassium 4.2 mEq/L (3.5-5.1); Sodium 137 mEq/L (136-145); eGFR For African Americans > 60 (> 60); eGFR For Non-African Americans > 60 (> 60)
[2022-01-11] MEDS: *HR* HYDROcodone/Acet 5/325 mg TABLET PO PRN ×3 (03:32→15:01)
[2022-01-11] MEDS: Vancomycin 1,750 MG/517.5 ML IV.SOLN IVPB SCH ×3 (05:43→21:13)
[2022-01-11] MEDS: *HR* Heparin 5,000 UNIT/ML VIAL SQ SCH ×2 (05:44→17:49)
[2022-01-11] MEDS: Nystatin SUSP 5 ML UD.LIQ BC SCH ×4 (09:04→20:45)
[2022-01-11] MEDS: Ibuprofen 600 MG TABLET PO SCH ×3 (09:04→20:53)
[2022-01-11] MEDS: Colchicine 0.6 MG TABLET PO SCH ×2 (09:04→20:53)
[2022-01-12] MEDS: Vancomycin 1,750 MG/517.5 ML IV.SOLN IVPB SCH ×4 (05:05→23:41)
[2022-01-12] MEDS: *HR* Heparin 5,000 UNIT/ML VIAL SQ SCH ×2 (05:05→17:34)
[2022-01-12] MEDS: *HR* HYDROcodone/Acet 5/325 mg TABLET PO PRN (05:09)
[2022-01-12] MEDS: Colchicine 0.6 MG TABLET PO SCH ×2 (08:58→20:17)
[2022-01-12] MEDS: Ibuprofen 600 MG TABLET PO SCH ×3 (08:58→20:15)
[2022-01-12] MEDS: Nystatin SUSP 5 ML UD.LIQ BC SCH ×4 (08:59→20:15)
[2022-01-12 09:35] LABS: eGFR For African Americans > 60 (> 60); eGFR For Non-African Americans > 60 (> 60)
[2022-01-12] MEDS ORDERED: 0.9 % Sodium Chloride 250 ML ONE (22:10)
[2022-01-13] MEDS: *HR* HYDROcodone/Acet 5/325 mg TABLET PO PRN ×2 (05:44→21:09)
[2022-01-13] MEDS: *HR* Heparin 5,000 UNIT/ML VIAL SQ SCH ×2 (05:45→21:20)
[2022-01-13] MEDS: Vancomycin 1,750 MG/517.5 ML IV.SOLN IVPB SCH ×3 (05:47→23:22)
[2022-01-13] MEDS: Colchicine 0.6 MG TABLET PO SCH ×2 (08:34→21:08)
[2022-01-13] MEDS: Ibuprofen 600 MG TABLET PO SCH ×3 (08:34→21:10)
[2022-01-13] MEDS: Nystatin SUSP 5 ML UD.LIQ BC SCH ×4 (08:35→21:11)
[2022-01-14] MEDS: Acetaminophen 325 MG TABLET PO PRN ×3 (01:13→23:00)
[2022-01-14] MEDS: *HR* Heparin 5,000 UNIT/ML VIAL SQ SCH ×2 (05:25→16:47)
[2022-01-14] MEDS: *HR* HYDROcodone/Acet 5/325 mg TABLET PO PRN ×2 (05:26→14:25)
[2022-01-14] MEDS: Vancomycin 1,750 MG/517.5 ML IV.SOLN IVPB SCH ×3 (07:42→23:00)
[2022-01-14] MEDS: Ibuprofen 600 MG TABLET PO SCH ×3 (09:14→20:21)
[2022-01-14] MEDS: Colchicine 0.6 MG TABLET PO SCH ×2 (09:14→20:20)
[2022-01-14] MEDS: Nystatin SUSP 5 ML UD.LIQ BC SCH ×4 (09:15→20:22)
[2022-01-14 15:00] LABS: eGFR For African Americans > 60 (> 60); eGFR For Non-African Americans > 60 (> 60)
[2022-01-15] MEDS: Acetaminophen 325 MG TABLET PO PRN (05:48)
[2022-01-15] MEDS: *HR* Heparin 5,000 UNIT/ML VIAL SQ SCH ×2 (05:49→18:58)
[2022-01-15] MEDS: Nystatin SUSP 5 ML UD.LIQ BC SCH ×4 (08:56→21:28)
[2022-01-15] MEDS: Vancomycin 1,750 MG/517.5 ML IV.SOLN IVPB SCH ×3 (09:03→23:16)
[2022-01-15] MEDS: Ibuprofen 600 MG TABLET PO SCH ×3 (09:03→21:28)
[2022-01-15] MEDS: Colchicine 0.6 MG TABLET PO SCH ×2 (09:04→21:28)
[2022-01-15] MEDS: *HR* HYDROcodone/Acet 5/325 mg TABLET PO PRN (11:53)
[2022-01-16] MEDS: Acetaminophen 325 MG TABLET PO PRN (05:10)
[2022-01-16] MEDS: *HR* Heparin 5,000 UNIT/ML VIAL SQ SCH ×2 (05:13→16:43)
[2022-01-16 05:49] LABS: BUN/Creatinine Ratio 21 (6-26); Blood Urea Nitrogen 12 mg/dL (6-20); eGFR For African Americans > 60 (> 60); eGFR For Non-African Americans > 60 (> 60)
[2022-01-16] MEDS: Ibuprofen 600 MG TABLET PO SCH ×3 (08:06→20:35)
[2022-01-16] MEDS: *HR* HYDROcodone/Acet 5/325 mg TABLET PO PRN ×3 (08:06→23:07)
[2022-01-16] MEDS: Vancomycin 1,750 MG/517.5 ML IV.SOLN IVPB SCH ×3 (08:07→23:05)
[2022-01-16] MEDS: Colchicine 0.6 MG TABLET PO SCH ×2 (08:07→20:36)
[2022-01-16] MEDS: Nystatin SUSP 5 ML UD.LIQ BC SCH ×4 (08:10→20:36)
[2022-01-16] MEDS ORDERED: Iopamidol - 370 500 ML MLS IVP ONE (14:03)
[2022-01-17] MEDS: Acetaminophen 325 MG TABLET PO PRN (04:28)
[2022-01-17 04:47] LABS: Hematocrit 31.5 % (37.5-50.1); Mean Corpuscular HGB Conc 31.7 g/dL (31.6-35.5); Mean Corpuscular Hemoglobin 28.7 pg (28.0-33.3); Mean Corpuscular Volume 90.3 fL (83.0-100.0); Mean Platelet Volume 9.4 fL (9.4-12.4); Platelet Count 288 K/mcL (140-400); Red Blood Count 3.49 M/mcL (4.19-5.50); Red Cell Distribution Width 12.9 % (11.5-14.5)
[2022-01-17 05:08] LABS: Alanine Aminotransferase 81 Units/L (7-52); Albumin/Globulin Ratio 0.8 (1.1-2.2); Alkaline Phosphatase 136 Units/L (34-104); Aspartate Amino Transferase 47 Units/L (13-39); BUN/Creatinine Ratio 27 (6-26); Bilirubin,Total 0.4 mg/dL (0.3-1.0); Blood Urea Nitrogen 18 mg/dL (6-20); Calcium 8.7 mg/dL (8.6-10.3); Carbon Dioxide 25 mEq/L (23-29); Chloride 104 mEq/L (98-107); Globulin 3.7 g/dL (2.4-3.5); Glucose 91 mg/dL (70-105); Magnesium 1.7 mg/dL (1.6-2.6); Osmolality,Calculated 281 (280-300); Sodium 135 mEq/L (136-145); Total Protein 6.7 g/dL (6.4-8.9); eGFR For African Americans > 60 (> 60); eGFR For Non-African Americans > 60 (> 60)
[2022-01-17] MEDS: *HR* Heparin 5,000 UNIT/ML VIAL SQ SCH ×2 (05:26→17:28)
[2022-01-17] MEDS: Ibuprofen 600 MG TABLET PO SCH (07:51)
[2022-01-17] MEDS: Vancomycin 1,750 MG/517.5 ML IV.SOLN IVPB SCH ×3 (07:51→23:55)
[2022-01-17] MEDS: Colchicine 0.6 MG TABLET PO SCH ×2 (07:51→22:34)
[2022-01-17] MEDS: Nystatin SUSP 5 ML UD.LIQ BC SCH ×2 (07:53→09:03)
[2022-01-17] MEDS: Ibuprofen 400 MG TABLET PO SCH ×2 (15:40→22:34)
[2022-01-17] MEDS: *HR* HYDROcodone/Acet 5/325 mg TABLET PO PRN ×2 (16:16→23:54)
[2022-01-18] MEDS: *HR* Heparin 5,000 UNIT/ML VIAL SQ SCH ×2 (06:41→16:54)
[2022-01-18] MEDS: Colchicine 0.6 MG TABLET PO SCH ×2 (07:31→20:25)
[2022-01-18] MEDS: Vancomycin 1,750 MG/517.5 ML IV.SOLN IVPB SCH ×3 (07:31→22:54)
[2022-01-18] MEDS: Ibuprofen 400 MG TABLET PO SCH ×4 (07:32→20:24)
[2022-01-18] MEDS: *HR* HYDROcodone/Acet 5/325 mg TABLET PO PRN ×2 (15:46→22:52)
[2022-01-19] MEDS: Acetaminophen 325 MG TABLET PO PRN ×2 (06:10→17:24)
[2022-01-19] MEDS: *HR* Heparin 5,000 UNIT/ML VIAL SQ SCH ×2 (06:11→17:23)
[2022-01-19] MEDS: Vancomycin 1,750 MG/517.5 ML IV.SOLN IVPB SCH ×3 (07:00→22:46)
[2022-01-19] MEDS: Colchicine 0.6 MG TABLET PO SCH ×2 (08:48→20:12)
[2022-01-19] MEDS: Ibuprofen 400 MG TABLET PO SCH ×3 (08:48→20:12)
[2022-01-19] MEDS: *HR* HYDROcodone/Acet 5/325 mg TABLET PO PRN ×2 (14:16→20:12)
[2022-01-20] MEDS: *HR* HYDROcodone/Acet 5/325 mg TABLET PO PRN ×3 (03:24→23:14)
[2022-01-20] MEDS: Acetaminophen 325 MG TABLET PO PRN (05:56)
[2022-01-20] MEDS: *HR* Heparin 5,000 UNIT/ML VIAL SQ SCH ×2 (05:57→18:18)
[2022-01-20] MEDS: Vancomycin 1,750 MG/517.5 ML IV.SOLN IVPB SCH ×3 (07:34→23:14)
[2022-01-20] MEDS: Colchicine 0.6 MG TABLET PO SCH ×2 (07:34→19:48)
[2022-01-20] MEDS: Ibuprofen 400 MG TABLET PO SCH ×3 (07:38→19:48)
[2022-01-20 12:19] LABS: eGFR For African Americans > 60 (> 60); eGFR For Non-African Americans > 60 (> 60)
[2022-01-21] MEDS: Vancomycin 1,750 MG/517.5 ML IV.SOLN IVPB SCH ×2 (07:15→15:22)
[2022-01-21] MEDS: *HR* Heparin 5,000 UNIT/ML VIAL SQ SCH (07:16)
[2022-01-21] MEDS: *HR* HYDROcodone/Acet 5/325 mg TABLET PO PRN ×2 (07:23→15:22)
[2022-01-21] MEDS: Colchicine 0.6 MG TABLET PO SCH (08:58)
[2022-01-21] MEDS: Ibuprofen 400 MG TABLET PO SCH ×2 (08:59→15:21)
[2022-01-21 11:33] VITALS: BP 114/80; PULSE 104; TEMP 97.3; O2SAT 98
[2022-01-21] MEDS ORDERED: Moderna Covid-19 Vaccine 100MCG/0.5mL IM ONE (13:44)
[2022-01-21 14:24] LABS: Adenovirus Not Detected (Not Detect); Bordetella Pertussis Not Detected (Not Detect); Chlamydophila pneumoniae Not Detected (Not Detect); Coronavirus 229E Not Detected (Not Detect); Coronavirus HKU1 Not Detected (Not Detect); Coronavirus NL63 Not Detected (Not Detect); Coronavirus OC43 Not Detected (Not Detect); Human Metapneumovirus Not Detected (Not Detect); Human Rhinovirus/Enterovirus Not Detected (Not Detect); Influenza A Subtype 2009 H1 Not Detected (Not Detect); Influenza B Not Detected (Not Detect); Mycoplasma pneumoniae Not Detected (Not Detect); Parainfluenza Virus 1 Not Detected (Not Detect); Parainfluenza Virus 2 Not Detected (Not Detect); Parainfluenza Virus 3 Not Detected (Not Detect); Parainfluenza Virus 4 Not Detected (Not Detect); Respiratory Syncytial Virus Not Detected (Not Detect); SARS-CoV-2 Not Detected (Not Detect)
== END 2022-01-21 18:40 | DRG 710 ==
LOC: EMEROOARM 10:45 → 2NNU 17:58 → SUATTDRO 17:58 → 2NNU 20:09 → 2NENU 01-08 21:49
PROVIDERS: ADMIT General Practice; ATTEND Internal Medicine